=== PATIENT | male | born 1955 | race Caucasian/White ===

== ENCOUNTER 2025-02-26 22:57 | Emergency (ER) | payer MEDICAID, MEDICARE ==
[2025-02-26] MEDS ORDERED: Tetracaine HCl/PF 0.5% 4 ML Bottle ONE (23:00)
[2025-02-26] MEDS: Tetracaine HCl/PF 0.5% 4 ML Bottle EYEBOTH ONE (23:07)
[2025-02-26] MEDS: Take Home: Polymyxin B Sulf/Trimethoprim Ophth Soln 10 ML, 1 Bottle Pack EYERT ONE (23:18)
== END 2025-02-26 23:31 | disposition home or self-care (01) ==
LOC: LL.ED 22:57
DX: S05.01XA Injury of conjunctiva and corneal abrasion without foreign body, right eye, initial encounter (principal); W44.8XXA Other foreign body entering into or through a natural orifice, initial encounter; Y93.89 Activity, other specified
CPT/HCPCS: 99283; A9270-GY; J3490